=== PATIENT | female | born 1980 | race Hispanic/Latino ===

== ENCOUNTER 2021-10-01 11:19 | Emergency (ER) | payer BC ==
[2021-10-01 12:19] LABS: #Eosinphils 0.1 10x3/uL (0.0-0.5); #Monocytes 0.7 10x3/uL (0.0-1.1); #Neutrophils 7.7 10x3/uL (1.5-8.4); %Basophils 0.3 % (0.0-2.0); %Eosinophils 0.6 % (0.0-6.0); %Lymphocytes 21.5 % (18.0-47.0); %Monocytes 6.1 % (0.0-10.0); Mean Corpuscular HGB CONC 34.3 g/dL (32.0-36.0); Mean Corpuscular Hemoglobin 30.2 pg (27.0-33.0); Mean Corpuscular Volume 87.9 fl (81.6-98.3); Mean Platelet Volume 10.8 fl (7.4-10.4); Platelet Count 300 10x3/uL (150-450); RBC Distribution Width 13.6 % (11.5-14.5); Red Blood Cell (RBC) Count 3.98 10x6/uL (3.90-5.03); White Blood Cell (WBC) Count 10.9 10x3/uL (3.5-10.5)
[2021-10-01 12:34] LABS: ALT (SGPT) 20 U/L (8-55); AST (SGOT) 18 U/L (5-34); Albumin 4.2 g/dL (3.5-5.0); Alkaline Phosphatase 45 U/L (40-110); Anion Gap 12 mmol/L (10-20); BUN (Urea Nitrogen) 8 mg/dL (7.0-18.7); Bilirubin, Total 0.2 mg/dL (0.2-1.2); Calc. Creatinine Clearance 0 mL/min (70-130); Calcium 9.2 mg/dL (7.8-10.44); Carbon Dioxide 24 mmol/L (22-29); Chloride 104 mmol/L (98-107); Globulin 3.2 g/dL (2.4-3.5); Glucose 83 mg/dL (70-105); Potassium 3.5 mmol/L (3.5-5.1); Protein, Total 7.4 g/dL (6.0-8.3); Sodium 136 mmol/L (136-145)
[2021-10-01 13:36] LABS: Bilirubin Neg (Negative); Blood, Urine 250 (Negative); Clarity Clear (Clear); Glucose, Urine (Dipstick) Normal (Negative); Ketone, Urine Negative (Negative); Leukocyte Negative (Negative); Nitrite Negative (Negative); Protein, Urine (Dipstick) Negative (Neg-Trace); Specific Gravity, Urine 1.015 (1.002-1.036); Urobilinogen Normal mg/dL (Less than 2); pH, Urine 6.5 (5.0-9.0)
[2021-10-01 13:50] LABS: Bacteria/HPF Rare-Few HPF (None Seen); Squamous Epithelial 0-3 HPF (0-3); WBC/HPF 0-3 HPF (0-3)
== END 2021-10-01 19:19 | disposition home or self-care (01) ==
LOC: CSHERS 11:19
DX: O20.0 Threatened abortion (principal); O99.891 Other specified diseases and conditions complicating pregnancy; R10.9 Unspecified abdominal pain; O09.521 Supervision of elderly multigravida, first trimester; Z3A.13 13 weeks gestation of pregnancy
CPT/HCPCS: 36415; 76815; 80053; 81003; 81015; 84702; 85025; 86900; 86901

== ENCOUNTER 2021-10-10 07:55 | Day surgery (SDC) | payer BC ==
[2021-10-09 13:39] VITALS: BMI 29.2
[2021-10-10] MEDS ORDERED: Lidocaine 1% MPF 2 ML VIAL ONE (08:17)
[2021-10-10] MEDS ORDERED: Lidocaine 1% (PF) 30 ML VIAL ONE (09:18)
[2021-10-10] MEDS ORDERED: Famotidine/PF 20 mg/2ml Vial ONE (09:32)
[2021-10-10] MEDS ORDERED: Metoclopramide HCl 10 MG/2 ML VIAL ONE (09:44)
[2021-10-10] MEDS ORDERED: Ondansetron PF 4 MG/2 ML Vial ONE (09:44)
[2021-10-10] MEDS ORDERED: Dexamethasone 4 mg/ml Vial ONE (09:44)
[2021-10-10] MEDS ORDERED: PHENYLEPHRINE-NS 100 MCG/ML 10 ML SYRINGE ONE (09:46)
== END 2021-10-10 14:30 | disposition home or self-care (01) ==
LOC: CSHSDC 07:55
PROVIDERS: ATTEND Obstetrics & Gynecology
PROC: 0UVC7ZZ Restriction of Cervix, Via Natural or Artificial Opening (ICD-10-PCS; principal; 2021-10-10)
DX: O34.32 Maternal care for cervical incompetence, second trimester (principal); O34.82 Maternal care for other abnormalities of pelvic organs, second trimester; O99.891 Other specified diseases and conditions complicating pregnancy; O09.522 Supervision of elderly multigravida, second trimester; N81.5 Vaginal enterocele; N89.8 Other specified noninflammatory disorders of vagina; Z3A.15 15 weeks gestation of pregnancy; Z87.59 Personal history of other complications of pregnancy, childbirth and the puerperium; Z90.49 Acquired absence of other specified parts of digestive tract; Z98.890 Other specified postprocedural states; Z79.899 Other long term (current) drug therapy; Z79.890 Hormone replacement therapy
CPT/HCPCS: J1100; J2001; J2405; J2765; S0028

== ENCOUNTER 2022-03-12 10:51 | Day surgery (SDC) | payer BC ==
[2022-03-12] MEDS ORDERED: Acetaminophen 500 MG TAB PO PRN (11:54)
[2022-03-12] MEDS ORDERED: hydrALAZINE 20 MG/ML VIAL SLOW IVP PRN (11:54)
[2022-03-12] MEDS ORDERED: Promethazine HCl 25 MG/ML VIAL IM PRN (11:54)
[2022-03-12] MEDS ORDERED: Ondansetron PF 4 MG/2 ML Vial IVP PRN (11:54)
== END 2022-03-12 14:50 | disposition home or self-care (01) ==
LOC: CSHLD/OP 10:51
PROVIDERS: ATTEND Family Medicine
DX: O34.33 Maternal care for cervical incompetence, third trimester (principal); O09.523 Supervision of elderly multigravida, third trimester; Z3A.36 36 weeks gestation of pregnancy
CPT/HCPCS: 99283

== ENCOUNTER 2022-03-19 09:16 | Inpatient (IN) | payer BC ==
[2022-03-19] MEDS ORDERED: Penicillin G Potassium 5 MILL.UNITS VIAL ONE (09:46)
[2022-03-19] MEDS ORDERED: Methylergonovine 0.2 MG/ML VIAL IM PRN (10:22)
[2022-03-19] MEDS ORDERED: Diphenoxylate HCl/Atropine Tablet PO PRN (10:22)
[2022-03-19] MEDS ORDERED: Acetaminophen 500 MG TAB PO PRN (10:22)
[2022-03-19] MEDS ORDERED: Carboprost 250 MCG/ML AMP IM PRN (10:22)
[2022-03-19] MEDS ORDERED: Lidocaine 1% (PF) 30 ML VIAL SC PRN (10:22)
[2022-03-19] MEDS ORDERED: hydrALAZINE 20 MG/ML VIAL SLOW IVP PRN ×2 (10:22→18:52)
[2022-03-19] MEDS ORDERED: Ibuprofen 800 MG TAB PO PRN (10:22)
[2022-03-19] MEDS ORDERED: Misoprostol 200 MCG TAB PR PRN (10:22)
[2022-03-19] MEDS ORDERED: Butorphanol Tartrate 1 MG/ML VIAL SLOW IVP PRN (10:22)
[2022-03-19] MEDS ORDERED: Promethazine HCl 25 MG/ML VIAL IM PRN ×2 (10:22→18:52)
[2022-03-19] MEDS ORDERED: HYDROcodone/Acetaminophen 5/325 mg Tablet PO PRN ×2 (10:22→18:52)
[2022-03-19] MEDS ORDERED: Ondansetron PF 4 MG/2 ML Vial IVP PRN ×2 (10:22→18:52)
[2022-03-19] MEDS ORDERED: NS w/ Oxytocin 30 units 500 ML IV SCH ×2 (10:30)
[2022-03-19] MEDS ORDERED: Lactated Ringer's 1,000 ML IV SCH (10:30)
[2022-03-19] MEDS ORDERED: Penicillin G Potassium 5 MILL.UNITS in Sodium Chloride 0.9% 100 ML IVPB SCH (10:30)
[2022-03-19] MEDS ORDERED: Butorphanol Tartrate 1 MG/ML VIAL ONE (10:32)
[2022-03-19 10:57] LABS: Hemoglobin 11.1 g/dL (12.0-15.5); Mean Corpuscular HGB CONC 33.9 g/dL (32.0-36.0); Mean Corpuscular Hemoglobin 29.4 pg (27.0-33.0); Mean Corpuscular Volume 86.7 fl (81.6-98.3); Mean Platelet Volume 12.1 fl (7.4-10.4); Platelet Count 223 10x3/uL (150-450); Red Blood Cell (RBC) Count 3.77 10x6/uL (3.90-5.03); White Blood Cell (WBC) Count 7.4 10x3/uL (3.5-10.5)
[2022-03-19 11:22] VITALS: BMI 29.2
[2022-03-19 11:24] LABS: Syphilis Antibody Nonreactive (Nonreactive); Syphilis Antibody Index 0.06 S/CO (<1.00 Non-Reactive)
[2022-03-19 11:25] LABS: Hep B Surf Ag Non-Reactive S/CO (NonReactive)
[2022-03-19 11:37] LABS: SARS-CoV-2 NAA Rapid Test Not Detected (NotDetected)
[2022-03-19 11:41] LABS: HBSAg Index 0.15 S/CO (0-0.99)
[2022-03-19] MEDS: Penicillin G 2.5 MILL.units 2.5 MILL.UNITS in Premix Bag 1 BAG IVPB SCH ×2 (13:46→23:03)
[2022-03-19] MEDS ORDERED: Bisacodyl 10 MG SUPP PR PRN (18:52)
[2022-03-19] MEDS ORDERED: Boostrix 0.5 ML (Tdap) VIAL IM ONE (18:52)
[2022-03-19] MEDS ORDERED: Milk Of Magnesia 30 ML UDCUP PO PRN (18:52)
[2022-03-19] MEDS ORDERED: Lanolin Ointment 7 GM TUBE TOP PRN (18:52)
[2022-03-19] MEDS: Docusate 100 MG CAP PO SCH (19:56)
[2022-03-19] MEDS: Ibuprofen 800 MG TAB PO SCH (21:40)
[2022-03-20] MEDS: Ibuprofen 800 MG TAB PO SCH ×2 (05:44→12:53)
[2022-03-20] MEDS: Ferrous Sulfate 325 MG TAB PO SCH ×2 (08:29→14:23)
[2022-03-20] MEDS ORDERED: Prenatal Vitamin 1 TAB PO SCH (09:00)
[2022-03-20] MEDS: Docusate 100 MG CAP PO SCH (09:10)
[2022-03-20 20:22] VITALS: BP 110/55; TEMP 98.3
== END 2022-03-20 20:19 | disposition home or self-care (01) | DRG 807 ==
LOC: CSHLD 09:16 → CSHPP 18:40
PROVIDERS: ADMIT Family Medicine; ATTEND Family Medicine
PROC: 10E0XZZ Delivery of Products of Conception, External Approach (ICD-10-PCS; principal; 2022-03-19)
PROC: 10H07YZ Insertion of Other Device into Products of Conception, Via Natural or Artificial Opening (ICD-10-PCS; 2022-03-19)
PROC: 10907ZC Drainage of Amniotic Fluid, Therapeutic from Products of Conception, Via Natural or Artificial Opening (ICD-10-PCS; 2022-03-19)
DX: O99.824 Streptococcus B carrier state complicating childbirth (principal); Z37.0 Single live birth; Z20.822 Contact with and (suspected) exposure to COVID-19; Z3A.37 37 weeks gestation of pregnancy
CPT/HCPCS: 85027; 86780; 86850; 86900; 86901; 87340; J0595; J2540; J2590; J3490; U0002